=== PATIENT | female | born 1970 | race Caucasian/White ===

== ENCOUNTER 2017-05-01 06:26 | Emergency (ER) | payer OTHER ==
[~2017-05-01] VITALS: Ht 162.6 cm; Wt 80.0 kg
[~2017-05-01 06:26] MED LIST: DICLOFENAC POTA50 MG PO; ENDOCET 5-3251 EAC1 PO
[2017-05-01 07:30] LABS: ADD MIUA? YES; BILIRUBIN NEGATIVE; BLOOD SMALL; COLOR YELLOW ((YELLOW)); GLUCOSE (STRIP) NEGATIVE; KETONES NEGATIVE; LEUKOCYTES NEGATIVE; NITRITE NEGATIVE; PROTEIN (STRIP) NEGATIVE; SPECIFIC GRAVITY 1.012 (1.000-1.030); UROBILINOGEN 0.2 MG/DL (0.2-1.0)
[2017-05-01 07:36] LABS: INTERNAL CONTROL VALID? YES
[2017-05-01 07:53] LABS: BACTERIA NONE SEEN /HPF; EPITHELIAL CELLS RARE /HPF; MUCUS NONE SEEN /LPF; RED BLOOD CELLS 0-5 /HPF (0-5); UCUL ADDED? NO; WHITE BLOOD CELLS 0-5 /HPF (0-5)
[2017-05-01] MEDS ORDERED: MEDROL DOSEPAK4 MG PO (09:23)
[2017-05-01] MEDS ORDERED: IBUPROFEN600 MG PO (09:23)
[2017-05-01 09:37] VITALS: BP 133/78
== END 2017-05-01 09:48 | disposition home or self-care (01) ==
LOC: EME 06:26
PROVIDERS: Emergency Medicine
DX: S29.012A Strain of muscle and tendon of back wall of thorax, initial encounter (principal); X50.9XXA Other and unspecified overexertion or strenuous movements or postures, initial encounter; Y99.0 Civilian activity done for income or pay; N20.0 Calculus of kidney; M53.80 Other specified dorsopathies, site unspecified; I10 Essential (primary) hypertension; Z87.891 Personal history of nicotine dependence; Z98.51 Tubal ligation status
CPT/HCPCS: 74176; 81003; 84703; 99281; 99284